=== PATIENT | female | born 1960 | race Caucasian/White ===

== ENCOUNTER → 2019-01-12 | Outpatient (REF) | payer OTHER ==
[2019-01-12 14:54] LABS: BASO # 0.1 10^3/uL (0.0-0.2); BASO % 0.6 % (0.0-1.0); EOS # 0.1 10^3/uL (0.0-0.50); EOS % 0.8 % (0.0-3.0); HEMATOCRIT 41.2 % (36.0-47.0); HEMOGLOBIN 13.3 g/dl (12.0-15.5); LYMPH % 20.5 % (24.0-44.0); MEAN CORPUSCULAR HEMOGLOBIN 29.1 pg (27.0-33.0); MEAN CORPUSCULAR HGB CONC 32.3 g/dl (32.0-36.5); MEAN CORPUSCULAR VOLUME 90.2 fl (80.0-96.0); MONO # 0.6 10^3/uL (0.0-0.8); MONO % 6.1 % (0.0-5.0); NEUTROPHILS # 6.8 10^3/uL (1.8-7.7); NEUTROPHILS % 71.6 % (36.0-66.0); PLATELET COUNT, AUTOMATED 351 10^3/uL (150-450); RED BLOOD COUNT 4.57 10^6/uL (4.00-5.40); WHITE BLOOD COUNT 9.6 10^3/uL (4.0-10.0)
[2019-01-12 15:10] LABS: ALBUMIN 3.7 GM/DL (3.2-5.2); ALT/SGPT 21 U/L (12-78); BILIRUBIN,TOTAL 0.5 MG/DL (0.2-1.0); BLOOD UREA NITROGEN 7 MG/DL (7-18); C REACTIVE PROTEIN QUANTITATIV 0.78 MG/DL (0.00-0.30); CALCIUM LEVEL 9.3 MG/DL (8.5-10.1); CARBON DIOXIDE LEVEL 28 MEQ/L (21-32); CHLORIDE LEVEL 105 MEQ/L (98-107); CREATININE FOR GFR 0.66 MG/DL (0.55-1.30); GLOMERULAR FILTRATION RATE > 60.0 (>51); GLUCOSE, FASTING 87 MG/DL (70-100); RHEUMATOID FACTOR QUANT < 10.0 IU/ML (<15.0); SODIUM LEVEL 141 MEQ/L (136-145); TOTAL PROTEIN 7.4 GM/DL (6.4-8.2); VITAMIN B12 LEVEL 415 PG/ML
[2019-01-12 15:11] LABS: FOLATE 14.7 NG/ML
[2019-01-12 15:16] LABS: HEMOGLOBIN A1c 5.6 %
[2019-01-12 15:39] LABS: ERYTHROCYTE SEDIMENTATION RATE 17 mm/hr (0-30)
[2019-01-16 10:48] LABS: DRVV SCREEN 37.9 SEC
[2019-01-18 00:14] LABS: ANCA-ATYPICAL <1:20 titer (Neg:<1:20); ANTI DOUBLE STRAND-DNA AB <1 IU/mL (0-9); ANTI DS-DNA AB <1:10 titer (.); ANTINUCLEAR ANTIBODIES DIRECT Positive (Negative); CERULOPLASMIN 32.2 mg/dL (19.0-39.0); COPPER PLASMA 119 ug/dL (72-166); CYTOPLASMIC NEUTROP AB ANCA-C <1:20 titer (Neg:<1:20); LEAD BLOOD ADULT 2 ug/dL (0-4); Lyme Disease IgG/IgM Antibodie <0.91 ISR (0.00-0.90); Lyme Disease IgM Ab Quantitati <0.80 index (0.00-0.79); MERCURY LEVEL None Detected ug/L (0.0-14.9); PERINUCLEAR AB ANCA-P <1:20 titer (Neg:<1:20); SJOGREN'S ANTI SS-A <0.2 AI (0.0-0.9); SJOGREN'S ANTI SS-B <0.2 AI (0.0-0.9); SMITH ANTIBODIES <0.2 AI (0.0-0.9); VITAMIN B1 LEVEL WHOLE BLOOD 131.1 nmol/L (66.5-200.0); VITAMIN B6,PYRIDOXAL PHOSPHATE 1.8 ug/L (2.0-32.8); VITAMIN E(ALPHA TOCOPHEROL) 11.1 mg/L (7.0-25.1); VITAMIN E(GAMMA TOCOPHEROL) 1.5 mg/L (0.5-5.5)
== END ==
LOC: M LABNEURO 09:38
PROVIDERS: ATTEND Psychiatry & Neurology Neurology
DX: G62.9 Polyneuropathy, unspecified (principal)

== ENCOUNTER → 2019-07-03 | Outpatient (REF) | payer OTHER ==
[2019-07-03 18:31] LABS: C REACTIVE PROTEIN QUANTITATIV 0.79 MG/DL (0.00-0.30); COMPLEMENT C3 138 MG/DL (90-180); COMPLEMENT C4 33 MG/DL (10-40); CPK CREATINE PHOSPHOKINASE 81 U/L (26-192); TOTAL PROTEIN 7.6 GM/DL (6.4-8.2)
[2019-07-04 10:15] LABS: HEPATITIS B SURFACE ANTIGEN NEGATIVE (NEGATIVE)
[2019-07-04 10:44] LABS: HEPATITIS C VIRUS ABY INDEX 0.1 INDEX (<0.8)
[2019-07-05 14:14] LABS: ALBUMIN 4.29 GM/DL (3.29-5.55); ALBUMIN % 56.5 % (55.8-66.1); ALPHA-1-GLOBULIN % 4.2 % (2.9-4.9); ALPHA-1-GLOBULINS 0.32 GM/DL (0.17-0.41); ALPHA-2-GLOBULINS % 11.8 % (7.1-11.8); BETA-1-GLOBULINS 0.49 GM/DL (0.28-0.60); BETA-1-GLOBULINS % 6.4 % (4.7-7.2); BETA-2-GLOBULINS 0.49 GM/DL (0.19-0.55); BETA-2-GLOBULINS % 6.5 % (3.2-6.5); GAMMA GLOBULIN % 14.6 % (11.1-18.8); GAMMA GLOBULINS 1.11 GM/DL (0.65-1.58)
[2019-07-06 00:07] LABS: ALDOLASE 3.1 U/L (3.3-10.3); ANA (HEP2) Negative (.); ANGIOTENSIN 1 CONVERTING ENZYM 37 U/L (14-82); CYCLIC CITRULLINATED PEPTIDE 9 units (0-19); HEPATITIS B CORE ANTIBODY IGG Negative (Negative); RNP ANTIBODY 1.9 AI (0.0-0.9); SMITHS ANTIBODY < 0.2 AI (0.0-0.9)
== END ==
LOC: M SFHCRHEU 13:59
PROVIDERS: ATTEND Internal Medicine
DX: R76.8 Other specified abnormal immunological findings in serum (principal); M25.50 Pain in unspecified joint

== ENCOUNTER → 2019-12-04 | Outpatient (CLI) | payer OTHER ==
--- NOTE | 2019-12-04 09:46 | REP ---
POSTBIOPSY MAMMOGRAM LEFT BREAST: ML and CC views of the left breast performed following ultrasound guided biopsy of two adjacent nodules in the upper outer quadrant of the left breast. There are two biopsy clips in the upper outer quadrant of the left breast. These are at the site of two previously identified nodules on the mammogram from [facility] 08/07/2019.
[2019-12-04 11:07] VITALS: BP 142/80
--- NOTE | 2019-12-05 19:56 | REP ---
ULTRASOUND GUIDED LEFT BREAST BIOPSY The procedure was performed under the general supervision of Dr. Segovia The patient has a history of a 7 x 5 x 6 mm ovoid lesion that demonstrates internal echoes, but is otherwise hypoechoic as well as a 5 x 4 x 6 mm hypoechoic shadowing lesion in the 1 o'clock position of the left breast seen on a previous ultrasound from the [facility] performed on 08/16/2019. The risks and benefits of the procedure were explained to the patient and informed consent was obtained. The left breast nodules were localized using ultrasound guidance. The skin was prepped and draped in a sterile fashion. The lesion at the 1 o'clock position in the more inferior aspect was addressed first. 1% lidocaine was used as a local anesthetic. Using ultrasound guidance a 14-gauge coaxial needle biopsy system was inserted and advanced into the nodule. Six core biopsy samples were obtained and sent to lab. A Hydromark clip (shape 4) was placed at the biopsy site. The 1 o'clock lesion in the more superior aspect was then addressed. 1% lidocaine was used as a local anesthetic. Using ultrasound guidance a 14-gauge coaxial needle biopsy system was inserted and advanced into the nodule. Six core biopsy samples were obtained and sent to lab. A Hydromark clip (shape 3)was placed at the biopsy site. The patient tolerated the procedure well and there were no immediate complications. Electronically Signed by LAISHA Torres 12/04/2019 04:29 P Electronically Signed by Brendan Segovia MD 12/05/2019 07:47 P
== END ==
LOC: M WHCPRO 07:58
PROVIDERS: ATTEND Surgery
DX: N60.22 Fibroadenosis of left breast (principal)